=== PATIENT | male | born 1960 | race African-American/Black ===

== ENCOUNTER 2018-01-01 21:05 | Emergency (ER) | payer SELFPAY ==
[2018-01-01 21:37] LABS: ABSOLUTE BASOPHILS # (AUTO) 0.1 10^3/uL (0.0-0.2); ABSOLUTE EOSINOPHILS # (AUTO) 0.2 10^3/uL (0.0-0.6); ABSOLUTE LYMPHOCYTES (AUTO) 2.8 10^3/uL (0.5-4.7); ABSOLUTE MONOCYTES (AUTO) 0.6 10^3/uL (0.1-1.4); ABSOLUTE NEUT (AUTO) 2.8 10^3/uL (1.7-8.2); BASOPHILS % (AUTO) 1.2 % (0-2); EOSINOPHILS % (AUTO) 2.9 % (0-6); HEMATOCRIT 37.2 % (37.9-51.0); HEMOGLOBIN 12.9 g/dL (13.5-17.0); LYMPHOCYTES % (AUTO) 42.9 % (13-45); MEAN CORPUSCULAR HEMOGLOBIN 33.3 pg (27.0-33.4); MEAN CORPUSCULAR HGB CONC 34.8 g/dL (32.0-36.0); MEAN CORPUSCULAR VOLUME 96 fl (80-97); MONOCYTES % (AUTO) 9.9 % (3-13); RED BLOOD COUNT 3.88 10^6/uL (4.35-5.55); RED CELL DISTRIBUTION WIDTH 12.1 % (11.5-14.0); SEGMENTED NEUTROPHILS % (AUTO) 43.1 % (42-78); TOTAL CELLS COUNTED % (AUTO) 100 %; WHITE BLOOD COUNT 6.5 10^3/uL (4.0-10.5)
[2018-01-01 21:42] LABS: ALANINE AMINOTRANSFERASE 21 U/L (21-72); ALBUMIN 4.5 g/dL (3.5-5.0); ALKALINE PHOSPHATASE 48 U/L (38-126); ANION GAP 12 (5-19); ASPARTATE AMINO TRANSFERASE 40 U/L (17-59); BILIRUBIN,DIRECT 0.4 mg/dL (0.0-0.4); BILIRUBIN,TOTAL 1.1 mg/dL (0.2-1.3); BLOOD UREA NITROGEN 24 mg/dL (7-20); CALCIUM 9.5 mg/dL (8.4-10.2); CARBON DIOXIDE 25 mmol/L (22-30); CHLORIDE 104 mmol/L (98-107); GLUCOSE 98 mg/dL (75-110); POTASSIUM 4.1 mmol/L (3.6-5.0); SODIUM 141.1 mmol/L (137-145)
--- NOTE | 2018-01-01 21:46 | ER Document Report ---
ED General - General Chief Complaint: Syncope Stated Complaint: SYNCOPE Time Seen by Provider: 01/01/18 21:43 Mode of Arrival: Ambulatory Information source: Patient Notes: This is a 57-year-old man with no significant medical problems who presents to the emergency room after syncopal event. Patient states that he was at basketball game in the audience and he felt hot, got up to get some air. He states when he opened up the doors to the gym, he felt dizzy and then passed out. EMS arrived and noticed that his blood pressure was on the low side (96/60 ). Patient states that they asked him whether he had chest pain. He states when he took in a deep breath he thought he had some chest wall pain and they gave him some aspirin. Otherwise he denies any chest pain while sitting in the stands and denies any chest pain now. He states that he has had fainting episodes in the past on 3 other occasions all similar in nature to today's: He gets hot, feels dizzy and then faints. Patient denies any smoking history. He denies drugs. He is on no medicines and no allergies. He is accompanied by his sister at the bedside. Their father had coronary artery disease which started in his 60s. Otherwise there is no significant family history for early onset coronary artery disease. There is no family history of sudden . - HPI Onset: Just prior to arrival Onset/Duration: Sudden Quality of pain: No pain Severity: None Pain Level: Denies Associated symptoms: denies: Chest pain, Fever, Shortness of breath Exacerbated by: Denies Relieved by: Denies Similar symptoms previously: Yes Recently seen / treated by doctor: No Past Medical History - General Information source: Patient - Social History Smoking Status: Never Smoker Cigarette use (# per day): No Chew tobacco use (# tins/day): No Frequency of alcohol use: None Drug Abuse: None Lives with: Family Family History: None Patient has suicidal ideation: No Patient has homicidal ideation: No - Medical History Medical History: Negative Renal/ Medical History: Denies: Hx Peritoneal Dialysis Surgical Hx: Negative Review of Systems - Review of Systems Constitutional: denies: Chills, Fever EENT: No symptoms reported Cardiovascular: Syncope, Dizziness, Lightheaded. denies: Chest pain, Palpitations, Heart racing Respiratory: denies: Cough, Hemoptysis, Short of breath Gastrointestinal: denies: Abdomen distended, Abdominal pain, Diarrhea Genitourinary: No symptoms reported Male Genitourinary: No symptoms reported Musculoskeletal: No symptoms reported Skin: No symptoms reported Hematologic/Lymphatic: No symptoms reported Neurological/Psychological: denies: Confusion, Paralysis, Seizure, Speech impairment, Numbness Physical Exam - Vital signs Vitals: Temp Pulse Resp BP Pulse Ox 97.7 F 66 15 116/73 93 01/01/18 21:14 01/01/18 21:14 01/01/18 21:14 01/01/18 21:14 01/01/18 21:14 Notes: Physical exam: GENERAL: 57-year-old man, alert and oriented x3, no complaints at this time. He is in no distress. HEAD: Atraumatic, normocephalic. EYES: Pupils equal round and reactive to light, extraocular movements intact, sclera anicteric, conjunctiva are normal. ENT: TMs normal, nares patent, oropharynx clear without exudates. Moist mucous membranes. NECK: Normal range of motion, supple without obvious mass or JVD. LUNGS: Breath sounds clear to auscultation bilaterally and equal. No wheezes rales or rhonchi. HEART: Regular rate and rhythm without murmurs, rubs or gallops. ABDOMEN: Soft, normoactive bowel sounds. No tenderness to palpation. No guarding, no rebound. No masses appreciated. Rectal: Brown stool, sent for study. EXTREMITIES: Normal range of motion, no pitting or edema. No clubbing or cyanosis. NEUROLOGICAL: Cranial nerves II through XII grossly intact. Normal speech, moving all extremities. PSYCH: Normal mood, normal affect. SKIN: Warm, Dry, normal turgor, no rashes or lesions noted. Course - Vital Signs Vital signs: Temp Pulse Resp BP Pulse Ox 98.5 F 68 17 122/81 96 01/01/18 23:49 01/01/18 21:51 01/01/18 23:49 01/01/18 23:49 01/01/18 23:49 - Laboratory Result Diagrams: 01/01/18 20:30 01/01/18 20:30 Laboratory results interpreted by me: 01/01/18 01/01/18 20:30 20:30 RBC 3.88 L Hgb 12.9 L Hct 37.2 L BUN 24 H Creatinine 1.34 H Est GFR (Non-Af Amer) 55 L Creatine Kinase 699 H - EKG Interpretation by Me Rate: Normal Rhythm: NSR - EKG shows normal sinus rhythm with a ventricular rate of 65. There does appear to be some re-pole changes in leads L, 1, V2 through V6. There is no T wave inversions. There is no ST depressions. The patient is having no discomfort at this time. Discharge - Discharge Clinical Impression: Vasovagal syncope Condition: Stable Disposition: HOME, SELF-CARE Additional Instructions: Recommendations: Rest, drink plenty of fluids. I do want you to follow-up with a primary care doctor: Return to the emergency room for any chest pain, shortness of breath or any concerns that you are getting worse. When you do follow-up with a primary care doctor: Bring a copy of today's labs with you when you go. Recommendations: It is recommended to followup with a primary care doctor within the next 2 days. If you do not have a primary care doctor or you are unable to get an apointment during that time, I left the number for some internal medicine physicians that are affiliated with this hospital. Dr. Pasha Ferrara [address], [place] [address] [phone] Dr Lira Address: [address] [place] [address] [place] [address] Dr Anderson Address: [address] [place] [address] , [place] [address]
[2018-01-01] MEDS ORDERED: RINGERS SOLUTION,LACTATED 1,000 ML IV ONE (21:48)
[2018-01-01 21:50] LABS: PLATELET COUNT 300 10^3/uL (150-450)
[2018-01-01 21:54] LABS: CREATINE KINASE MB 1.57 ng/mL (<4.55)
[2018-01-01 21:56] LABS: TROPONIN I < 0.012 ng/mL
[2018-01-01 21:59] LABS: CREATINE KINASE 699 U/L (55-170); TOTAL PROTEIN 7.8 g/dL (6.3-8.2)
[2018-01-01 23:51] VITALS: BP 122/81
--- NOTE | 2018-01-02 08:16 | EKG REPORT ---
SEVERITY:- BORDERLINE ECG - SINUS RHYTHM BORDERLINE T ABNORMALITIES, INFERIOR LEADS : Confirmed by: Desire Conway MD 02-Jan-2018 08:15:35
--- NOTE | 2018-01-02 08:16 | EKG REPORT ---
SEVERITY:- BORDERLINE ECG - SINUS RHYTHM BORDERLINE T ABNORMALITIES, INFERIOR LEADS : Confirmed by: Desire Conway MD 02-Jan-2018 08:15:41
== END 2018-01-01 23:51 | disposition home or self-care (01) ==
LOC: ER 21:05
DX: R55 Syncope and collapse (principal); Z82.49 Family history of ischemic heart disease and other diseases of the circulatory system
CPT/HCPCS: 93005; 99284; 96360; 36415; 82553; 82550; 85025; 82272; 80053; 84484; 93010; J7120